=== PATIENT | male | born 1990 | race Hispanic/Latino ===

== ENCOUNTER 2017-01-26 12:41 | Day surgery (SDC) | payer OTHER ==
[~2017-01-26] VITALS: Ht 167.6 cm; Wt 80.7 kg
[~2017-01-26 12:41] MED LIST: MULT1CHW39 PO; [UNRECOGNIZED DRUG - CODE] CO
[2017-01-26] MEDS ORDERED: LIDOCAINE 1% MDV 20ML VIAL SQ PRN (13:00)
[2017-01-26] MEDS ORDERED: PERCOCET 5MG/325MG TAB PO ONE (13:00)
[2017-01-26] MEDS ORDERED: LR 1,000 ML IV ONE (13:00)
[2017-01-26] MEDS ORDERED: CelecoXIB 400 MG CAP PO ONE (13:00)
[2017-01-26] MEDS ORDERED: PREGABALIN 75 MG CAP(LYRICA) PO ONE ×2 (13:00→14:30)
[2017-01-26] MEDS ORDERED: ROCURONIUM BROMIDE 50 MG/5 ML VIAL As Ordered ONE (15:40)
[2017-01-26] MEDS ORDERED: PROPOFOL 200 MG/20 ML VIAL As Ordered ONE ×2 (15:40→15:41)
[2017-01-26] MEDS ORDERED: LIDOCAINE 2% INJ 100 MG/5 ML SYRINGE As Ordered ONE (15:40)
[2017-01-26] MEDS ORDERED: fentaNYL 100 MCG/2 ML INJECTION (J3010) As Ordered ONE ×2 (15:41→16:58)
[2017-01-26] MEDS ORDERED: MIDAZOLAM INJ 2 MG/2 ML VIAL (J2250) As Ordered ONE (15:52)
[2017-01-26] MEDS ORDERED: BUPIVACAINE/EPIN 0.5% 30 ML VIAL As Ordered ONE (16:04)
[2017-01-26] MEDS ORDERED: THROMBIN SOLN 20,000 UNITS KIT As Ordered ONE (16:04)
[2017-01-26] MEDS ORDERED: BACITRACIN PWD 50,000 UNITS VIAL As Ordered ONE (16:05)
[2017-01-26] MEDS ORDERED: BUPIVACAINE LIPOSOME/PF 1.3% 20 ML VIAL (13.3MG/ML)(EXPAREL) As Ordered ONE (16:45)
[2017-01-26] MEDS ORDERED: LIDOCAINE W/EPINEPHRINE 1% 20ML VIAL As Ordered ONE (16:45)
[2017-01-26] MEDS ORDERED: BUPIVACAINE HCL 0.5% 30 ML VIAL As Ordered ONE (16:45)
[2017-01-26] MEDS ORDERED: dexameTHASONE 4 MG/ML 1ML VIAL (J1100) As Ordered ONE (17:02)
[2017-01-26] MEDS ORDERED: PHENYLEPHRINE INJ 10MG/ML VIAL (J2370) As Ordered ONE (17:03)
[2017-01-26] MEDS ORDERED: ONDANSETRON 4MG/2ML VIAL (J2405) As Ordered ONE (18:15)
[2017-01-26] MEDS ORDERED: GLYCOPYRROLATE INJ 0.2 MG/ML 2 ML VIAL As Ordered ONE (18:30)
[2017-01-26] MEDS ORDERED: NEOSTIGMINE 10 MG/10 ML VIAL (J2710) As Ordered ONE (18:30)
--- NOTE | 2017-01-26 18:49 | REP ---
PARTIAL LUMBAR SPINE, ONE VIEW: HISTORY: Discectomy. A single portable lateral radiograph was obtained. A metal probe is present overlying the neural arch at the L5-S1 level. Signed by Tony Chaney MD 01/26/2017 06:50 P
[2017-01-26] MEDS ORDERED: D5W/LR 1,000 ML IV SCH (19:15)
[2017-01-26] MEDS ORDERED: LR 1,000 ML IV SCH (19:15)
[2017-01-26] MEDS ORDERED: PERCOCET 5MG/325MG TAB PO PRN ×2 (19:15)
[2017-01-26] MEDS ORDERED: fentaNYL 100 MCG/2 ML INJECTION (J3010) IV PRN (19:15)
[2017-01-26] MEDS ORDERED: PROMETHAZINE INJ 25 MG/ML VIAL (J2550) IV PRN (19:15)
[2017-01-26] MEDS ORDERED: HYDROmorphone HCL 1 MG/ML SYRINGE (J1170) IV PRN ×2 (19:15)
[2017-01-26] MEDS ORDERED: ONDANSETRON 4MG/2ML VIAL (J2405) IV PRN (19:15)
[2017-01-26] MEDS ORDERED: MEPERIDINE INJ 25 MG/ML VIAL (J2175) IV PRN (19:15)
[2017-01-26] MEDS ORDERED: METOCLOPRAMIDE INJ 10MG/2ML VIAL (J2765) IV PRN (19:15)
[2017-01-26 19:50] VITALS: BP 122/67
[2017-01-26 20:15] VITALS: BP 119/77
[2017-01-26] MEDS ORDERED: PREGABALIN 50 MG CAP (LYRICA) PO ONE (21:00)
[2017-01-26 21:15] VITALS: BP 133/79
[2017-01-26 22:15] VITALS: BP 127/57
[2017-01-26 23:15] VITALS: BP 121/76
[2017-01-27 00:15] VITALS: BP 124/62
[2017-01-27] MEDS: PERCOCET 5MG/325MG TAB PO PRN ×2 (00:35→08:23)
[2017-01-27 06:00] VITALS: BP 125/74
[2017-01-27] MEDS ORDERED: CelecoXIB (CeleBREX) 100 MG CAP PO SCH (09:00)
--- NOTE | 2017-01-29 11:56 | RO ---
DATE OF PROCEDURE: 01/26/2017 PREOPERATIVE DIAGNOSES: Left-sided disc bulge at L4-5 with facet arthropathy and lateral recess spinal stenosis at L4-5. POSTOPERATIVE DIAGNOSES: Left-sided disc bulge at L4-5 with facet arthropathy and lateral recess spinal stenosis at L4-5. PROCEDURE PERFORMED: Laminotomy/microdiscectomy at L4-5 left. SURGEON: Dr. Eric Maya. PUBLIC RELATIONS ANALYST: Salvador Singh PA-C ANESTHESIA: General endotracheal. ESTIMATED BLOOD LOSS: Less than 30 mL replaced with crystalloid. COMPARISON: None. INDICATIONS: Left lower extremity radicular symptoms MRI suggestive of multilevel degenerative change including at L4-5 and L5-S1. However, left more than right lateral recess stenosis consistent with his radicular pattern at L4-5. The patient elects for operative intervention at decompression rather than a fusion-type surgery. Next, consent reviewed in detail with the patient including marco antonio discussion of the pathology involved, the procedure proposed, alternatives including doing nothing, risks including but not limited to pain, failure, infection, bleeding blood loss, nerve injury, incomplete relief symptoms and other issues. The patient agrees to proceed with surgery. DESCRIPTION OF PROCEDURE: Identified in the holding area, site and side verified, brought to the operating room. General endotracheal anesthesia was administered. He was positioned the prone position on the Keegan frame for expose of the lumbar spine. Next, sterilely prepped, draped in the usual fashion once I and the sales appointment coordinator were comfortable with the patient's positioning. I stood on the patient's left, Mr. Singh stood on the patient's right. An incision was based on palpation of landmarks and infiltrated with 1% lidocaine with epinephrine and made with a 10 blade, developed down through skin subcuticular tissues to the posterior lumbar fascia. This portion of procedure was accomplished using 3.5 loupe magnification. Posterior lumbar fascia was reflected off the spinous process of L5 and the dissection continued along the spinous process of L5 over the L5 lamina into the L4-5 facet complex and interspace. At this stage, I utilized the high-speed bur to implement the divot in the lamina of L5 and I placed a Mer probe in the divot and then we obtained a cross-table lateral x-ray to verify the lamina of L5 power level. Dissection continued superiorly for the exposure. The total length of the incision was approximately 2 cm. The L4 lamina was identified. The shadow line retractor was installed. At this stage my loupe and headlamp were removed and the operating microscope was moved in for the rest of the procedure. Mr. Singh looked through oculars on the right, through oculars on the left. The use the scope facilitated safe use of the high-speed bur which was used utilized to implement a left unilateral laminotomy of L4 extending superiorly to the bare area of 4 medially to the medial 10% of the L4-5 facet complex and inferiorly to the bare area at L5. Sharp curettes were utilized to elevate the ligamentum flavum. I appreciated hypertrophied epidural veins which were coagulated with bipolar cautery. I also appreciated hypertrophy of the ligamentum flavum in the lateral recess and this was decompressed using #2 Kerrisons as well as a curved Kerrison under the facet at L4-5. Next, I was able to sweep the nerve root traversing of L5 medially and the disc was significantly bulging. Mr. Singh secured a suction levels retractor and I opened the annulus using an 11 blade and removed a small amount of posteriorly bulging disc material. Bipolar cautery was utilized for hemostasis as well as thrombin Gelfoam, all of which was removed at the conclusion of the case. Next, I traced the tract of the nerve root and it was appreciated be significantly decompressed compared to preoperatively. Next the wound was inspected for bleeding. No bleeding Valsalva maneuver to 40. No cerebrospinal fluid (CSF) leak. Irrigation was accomplished including irrigation with concentrated bacitracin solution. Posterior lumbar fascia was closed. The skin was closed interrupted stitch and Prineo of dressing. The patient was then moved to hospital bed in the supine position, extubated and moved to the recovery room in good condition. For further details please refer to medical record. Mr. Singh stayed through the entirety of the case in the capacity of therapy administrative assistant.
== END 2017-01-27 10:25 | disposition home or self-care (01) ==
LOC: M OR 12:41 → M SDC 12:41 → UNDOADMIN 12:41 → EDSTATUS 13:00 → M MS5PR 19:49 → M OR 19:49 → M MS5PR 19:49 → UNDODISIN 01-27 10:25 → M SDC 01-27 10:25
PROVIDERS: ATTEND Orthopaedic Surgery
DX: M51.26 Other intervertebral disc displacement, lumbar region (principal); M12.9 Arthropathy, unspecified; M48.061 Spinal stenosis, lumbar region without neurogenic claudication
CPT/HCPCS: 36415; 63030; 72100; 86850; 86900; 86901; 88304; 96365; 96366; 96376; J0690; J1100; J2250; J2370; J2405; J2710; J3010